=== PATIENT | male | born 1935 | race Caucasian/White ===

== ENCOUNTER 2017-07-18 12:03 | Day surgery (SDC) | payer MEDICARE, BC ==
[2017-07-18 12:28] VITALS: BP 172/81; PULSE 76; RESP 16; TEMP 98.5
== END 2017-07-18 13:12 | disposition home or self-care (01) ==
LOC: CATHCVL 12:03
PROVIDERS: ATTEND Radiology Diagnostic Radiology
DX: M71.169 Other infective bursitis, unspecified knee (principal)
CPT/HCPCS: 00000; C1751; 0

== ENCOUNTER 2018-03-08 11:11 | Emergency (ER) | payer MEDICARE, BC ==
[2018-03-08 13:18] LABS: Basophils % (A) 0 %; Eosinophils # (A) 0.2 k/uL (0-0.7); Eosinophils % (A) 4 %; HCT 45.2 % (39.0-53.0); HGB 14.6 gm/dL (13.0-17.5); Lymphocytes % (A) 16 %; MCH 29.8 pg (25.0-35.0); MCHC 32.2 g/dL (31.0-37.0); MCV 92.5 fL (80.0-100.0); Mean Platelet Volume 7.4; Monocytes # (A) 0.4 k/uL (0-1.0); Monocytes % (A) 7 %; Neutrophils # (A) 4.2 k/uL (1.3-7.7); Neutrophils % (A) 70 %; Platelet Count 199 k/uL (150-450); RBC 4.89 m/uL (4.30-5.90); RDW 15.6 % (11.5-15.5)
[2018-03-08 13:31] LABS: INR 4.7 (<1.2); Partial Thromboplastin Time 49.4 sec (22.0-30.0); Prothrombin Time 42.6 sec (9.0-12.0)
[2018-03-08 13:33] LABS: Albumin 3.8 g/dL (3.5-5.0); Calcium 8.9 mg/dL (8.4-10.2); Phosphorus 3.8 mg/dL (2.5-4.5); Potassium 5.2 mmol/L (3.5-5.1); Total Bilirubin 0.5 mg/dL (0.2-1.3); Total Protein 6.9 g/dL (6.3-8.2)
[2018-03-08 13:35] LABS: D-Dimer 1.39 mg/L FEU (<0.60)
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
--- NOTE | 2018-03-08 13:56 | US ---
EXAMINATION TYPE: US venous doppler duplex LE BI DATE OF EXAM: 03/08/2018 1:21 PM COMPARISON: NONE CLINICAL HISTORY: 83-year-old male Pain. Bilateral leg pain and swelling x couple days, on blood thin ners, exam done portable in ER. SIDE PERFORMED: Bilateral TECHNIQUE: The lower extremity deep venous system is examined utilizing real time linear array sonog uriah with graded compression, doppler sonography and color-flow sonography. FINDINGS: VESSELS IMAGED: External Iliac Vein (EIV) Common Femoral Vein Deep Femoral Vein Greater Saphenous Vein * Femoral Vein Popliteal Vein Small Saphenous Vein * Proximal Calf Veins (* superficial vessels) Handle Bar Assembler notes: Technically difficult study due to leg swelling Right Leg: Appears negative for DVT Left Leg: Appears negative for DVT IMPRESSION: No evidence for DVT within the bilateral lower extremities imaged from the groin to the upper calves. Soft tissue swelling is noted and causes some technical limitations.
[2018-03-08 14:00] LABS: Creatine Kinase 32 U/L (55-170)
--- NOTE | 2018-03-08 14:08 | XR ---
EXAMINATION TYPE: XR chest 2V DATE OF EXAM: 03/08/2018 COMPARISON: 06/04/2013 HISTORY: 83-year-old male with weakness and edema TECHNIQUE: PA and lateral views FINDINGS: Right anterior chest wall pacemaker generator with right knee joint and right ventricular leads. Spin al stimulator ray centered along the mid thoracic spinal canal. Heart is mildly enlarged. Aorta withi n normal limits. Patchy bibasilar opacities, right greater than left. No pleural effusion. Anterior e ndplate spondylosis. IMPRESSION: 1. Similar mild cardiomegaly. 2. Chronic changes and patchy bibasilar areas of atelectasis or infiltrates. The former is favored.
[2018-03-08 14:13] LABS: Creatine Kinase MB 0.8 ng/mL (0.0-2.4); Troponin I <0.012 ng/mL (0.000-0.034)
[2018-03-08 14:57] VITALS: BP 158/72; PULSE 72; RESP 18; TEMP 98.1
== END 2018-03-08 14:40 | disposition home or self-care (01) ==
LOC: EC 11:11
DX: M79.605 Pain in left leg (principal); M79.604 Pain in right leg; R60.0 Localized edema; K21.9 Gastro-esophageal reflux disease without esophagitis; Z79.899 Other long term (current) drug therapy; Z86.73 Personal history of transient ischemic attack (TIA), and cerebral infarction without residual deficits; Z85.46 Personal history of malignant neoplasm of prostate; Z85.038 Personal history of other malignant neoplasm of large intestine; Z95.0 Presence of cardiac pacemaker; Z95.5 Presence of coronary angioplasty implant and graft
CPT/HCPCS: 36415; 71046; 80053; 82550; 82553; 83605; 83735; 83880; 84100; 84484; 85025; 85379; 85610; 85730; 93970; 99284

== ENCOUNTER → 2018-03-30 | Outpatient (CLI) | payer MEDICARE, BC ==
--- NOTE | 2018-04-04 09:45 | P.ARTDOP ---
Arterial Doppler LOWER EXTREMITY ARTERIAL DOPPLER: DATE OF SERVICE: 03/30/2018 Reason for study: Bilateral leg discoloration and left leg cellulitis. Doppler waveforms: Multiphasic bilaterally throughout. Pulse volume recording: Normal configuration. Pressure gradients: None registered. Ankle-brachial indices: Cannot occlude. 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 Flow pattern is otherwise looking normal.
== END | disposition home or self-care (01) ==
LOC: RADUSWWP 14:35
PROVIDERS: ATTEND Internal Medicine Infectious Disease
DX: I77.9 Disorder of arteries and arterioles, unspecified (principal)
CPT/HCPCS: 93923

== ENCOUNTER → 2020-03-05 | Outpatient (CLI) | payer MEDICARE, BC ==
--- NOTE | 2020-03-06 09:18 | CT ---
EXAMINATION TYPE: CT chest w con DATE OF EXAM: 03/05/2020 COMPARISON: Chest x-ray 02/21/2020 HISTORY: Cough and dyspnea x2 months CT DLP: 622 mGycm, Automated exposure control for dose reduction was used. CONTRAST: Performed injected with 80 mL of Isovue 300. TECHNIQUE: Axial images were obtained at 5 mm thick sections. Reconstructed images are reviewed on [employer] computer in the coronal plane. FINDINGS: Thyroid is not identified. Some mild nonspecific peripheral infiltrates or on the right dependent lung bases. Some minimal left dependent lung base infiltrates are present. Small amount of infiltrate is along the lateral left kaleigh g margin. No enlarged mediastinal or hilar adenopathy is evident. Heart size is enlarged. Coronary artery nathan cification is noted. The ascending aorta diameter at the level of the main pulmonary artery is 4.1 cm . The main pulmonary artery diameter at the bifurcation is 3.[address] sections are obtained through the upper abdomen. Abdomen is essentially unremarkable. IMPRESSIONS: 1. Scattered peripheral infiltrates. Correlate for pneumonia. Consider atypical pneumonia. 2. Cardiomegaly
== END | disposition home or self-care (01) ==
LOC: RADCTMAIN 17:31
PROVIDERS: ATTEND Nurse Practitioner Adult Health
DX: R91.8 Other nonspecific abnormal finding of lung field (principal); I51.7 Cardiomegaly; R06.09 Other forms of dyspnea
CPT/HCPCS: 82565; 84520; 71260; 36415; Q9967

== ENCOUNTER → 2021-11-30 | Outpatient (CLI) | payer MEDICARE, BC ==
[2021-11-30 18:31] LABS: Basophils # (A) 0.03 X 10*3/uL (0.00-0.10); Basophils % (A) 0.5 %; Eosinophils # (A) 0.17 X 10*3/uL (0.04-0.35); Eosinophils % (A) 2.9 %; HCT 40.2 % (39.6-50.0); HGB 12.4 g/dL (13.0-17.0); Immature Grans, Automated 0.5 %; Lymphocytes # (A) 1.11 X 10*3/uL (0.90-5.00); Lymphocytes % (A) 18.7 %; MCH 30.5 pg (27.0-32.0); MCHC 30.8 g/dL (32.0-37.0); Mean Platelet Volume 10.5 fL (9.5-12.2); Monocytes % (A) 10.1 %; NRBC Per 100 WBC 0 /100 WBCS (0.0-0.0); Neutrophils % (A) 67.3 %; Platelet Count 162 X 10*3/uL (140-440); RBC 4.06 X 10*6/uL (4.40-5.60); RDW 16.6 % (11.5-14.5); WBC 5.94 X 10*3/uL (4.50-10.00)
[2021-11-30 19:50] LABS: African American GFR (CKD) 74.1 (60.0-200.0); Albumin/Globulin Ratio 1.4 (1.60-3.17); Anion Gap 14.6 mmol/L (10.00-18.00); BUN/Creat Ratio 21.81 Ratio (12.00-20.00); Blood Urea Nitrogen 22.9 mg/dL (9.0-27.0); Calcium 9.1 mg/dL (8.7-10.3); Globulin 2.9 g/dL (1.6-3.3); Potassium 5.1 mmol/L (3.5-5.5); Total Bilirubin 0.4 mg/dL (0.30-1.20); Total Protein 6.9 g/dL (6.2-8.2)
== END | disposition home or self-care (01) ==
LOC: LABWHC1 10:50
PROVIDERS: ATTEND Internal Medicine Interventional Cardiology
DX: I10 Essential (primary) hypertension (principal); I48.91 Unspecified atrial fibrillation; R53.83 Other fatigue
CPT/HCPCS: 36415; 80053; 84439; 84443; 85025

== ENCOUNTER → 2023-02-20 | Day surgery (SDC) | payer MEDICARE, OTHER ==
[~2023-02-20] MED LIST: ACETAMINOPHEN IV (For NPO) 1,000 MG in EMPTY BAG 1 BAG IVPB STA; SODIUM CHLORIDE 0.9% 500 ML 500 ML IV ONE; ceFAZolin 3 GM in SODIUM CHLORIDE 0.9% 100 ML IVPB STA; oxyCODONE-APAP 5-325MG 1 EACH TAB PO STA
[2023-02-20 18:48] VITALS: BP 169/80; PULSE 60; RESP 18; TEMP 98.3
--- NOTE | 2023-02-23 15:07 | P.PCN ---
Preoperative Diagnosis: Mr. Cummings was referred from the clinic for examination of wound/ICD implant site The wound was inspected There was no obvious infection Necrotic skin edges were noted However in the edges of carefully lifted, the base was healthy The circumflex sutures removed The area was cleaned and then dressed with Vaseline gauze Dressing applied IV antibiotics given Discharge home and we will see him again in about a week's time Impression Wound inspection, suture removal and dressing
== END ==
LOC: CATHEP 16:20
PROVIDERS: ATTEND Internal Medicine Clinical Cardiac Electrophysiology
DX: Z53.8 Procedure and treatment not carried out for other reasons (principal); L08.9 Local infection of the skin and subcutaneous tissue, unspecified
CPT/HCPCS: J0690; J0131

== ENCOUNTER 2023-04-02 16:39 | Inpatient (IN) | payer MEDICARE, OTHER ==
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
[2023-04-02 17:16] LABS: Basophils % (A) 0 %; Eosinophils # (A) 0.1 k/uL (0-0.7); Eosinophils % (A) 1 %; HGB 11.7 gm/dL (13.0-17.5); Lymphocytes # (A) 0.6 k/uL (1.0-4.8); Lymphocytes % (A) 7 %; MCH 32.2 pg (25.0-35.0); MCHC 32.6 g/dL (31.0-37.0); MCV 98.7 fL (80.0-100.0); Mean Platelet Volume 8.8; Monocytes # (A) 0.3 k/uL (0-1.0); Monocytes % (A) 4 %; Neutrophils # (A) 7.4 k/uL (1.3-7.7); Neutrophils % (A) 87 %; Platelet Count 160 k/uL (150-450); RBC 3.65 m/uL (4.30-5.90); WBC 8.5 k/uL (3.8-10.6)
[2023-04-02 17:56] LABS: African American GFR (CKD) 42 (>60 ml/min/1.73 sqM); Anion Gap 12 mmol/L; Blood Urea Nitrogen 62 mg/dL (9-20); Calcium 8.4 mg/dL (8.4-10.2); Carbon Dioxide 24 mmol/L (22-30); Chloride 102 mmol/L (98-107); Glucose 214 mg/dL (74-99); Magnesium 2.7 mg/dL (1.6-2.3); Non-African American GFR(CKD) 37 (>60 ml/min/1.73 sqM); Potassium 5.6 mmol/L (3.5-5.1); Sodium 138 mmol/L (137-145)
[2023-04-02] MEDS ORDERED: SODIUM ZIRCONIUM CYCLOSILICATE 10 GM PACKET PO ONE (17:57)
[2023-04-02] MEDS ORDERED: SODIUM CHLORIDE 0.9% 1,000 ML IV STA (17:58)
[2023-04-02] MEDS ORDERED: NALOXONE 0.4 MG/ML 1 ML VIAL IV PRN (18:26)
[2023-04-02] MEDS: SODIUM CHLORIDE 0.9% 1,000 ML IV SCH (18:33)
[2023-04-03 00:17] LABS: Appearance,Urine Cloudy (Clear); Bacteria,Urine Occasional /hpf; Bilirubin,Urine Negative (Negative); Blood,Urine Small (Negative); Color,Urine Yellow; Glucose,Urine (UA) Negative (Negative); Hyaline Casts,Urine 3 /lpf (0-2); Ketones,Urine Negative (Negative); Leukocyte Esterase,Urine Large (Negative); Mucus,Urine Rare /hpf; Nitrite,Urine Negative (Negative); PH, Urine 5.5 (5.0-8.0); Protein,Urine Trace (Negative); RBC,Urine 4 /hpf (0-5); Specific Gravity,Urine 1.017 (1.001-1.035); Squamous Epithelial Cell,Urine <1 /hpf (0-4); Urobilinogen,Urine <2.0 mg/dL (<2.0); WBC,Urine >182 /hpf (0-5)
[2023-04-03] MEDS: SODIUM CHLORIDE 0.9% 1,000 ML IV SCH ×3 (09:59→20:02)
[2023-04-03] MEDS: LEVOTHYROXINE 75 MCG TAB PO SCH (09:59)
[2023-04-03] MEDS: atenoloL 50 MG TAB PO SCH (10:00)
[2023-04-03] MEDS: APIXABAN 2.5 MG TABLET PO SCH ×2 (10:00→20:43)
[2023-04-03] MEDS ORDERED: IPRATROPIUM-ALBUTEROL 3 ML NEB INHALATION PRN (10:33)
[2023-04-03] MEDS ORDERED: bisacodyL 10 MG SUPP RECTAL PRN (10:33)
[2023-04-03] MEDS ORDERED: ACETAMINOPHEN TAB 325 MG TAB PO PRN (10:33)
[2023-04-03] MEDS ORDERED: MELATONIN 5 MG TABLET PO PRN (10:33)
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
--- NOTE | 2023-04-03 10:52 | CONS ---
CONSULTATION REQUEST FOR CONSULT: Regarding Lasix management. HISTORY OF PRESENT ILLNESS: Mr. Cummings is an 88-year-old gentleman with a chronic atrial fibrillation, sick sinus syndrome with underlying pacemaker. 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 He has underlying hypertension, hypothyroidism and hyperlipidemia. He takes Eliquis 5 mg b.i.d. In late January, he had a pulse generator change on the right side. There was a question of infection, but there is good healing. A small scab is noted. He apparently was sent here from [facility] through the emergency room. The diagnosis was that of hyperkalemia, UTI and dysrhythmia. The patient's potassium level was about 5.5. He was given Lokelma. His lactic acidosis was also high. The patient appears to be clinically dehydrated and he is resting comfortably at the time of my evaluation. He does not appear to be confused. PAST MEDICAL HISTORY: 1. Chronic atrial fib. 2. Diastolic heart failure. 3. History of left upper extremity amputation by accident. 4. Dual-chamber pacemaker with recent generator change in late January. 5. Chronic diastolic heart failure. 6. Type 2 diabetes mellitus. 7. Hypothyroidism, on replacement therapy. PHYSICAL EXAMINATION: VITAL SIGNS: Blood pressure is 118/70, pulse rate is 60 per minute. Appears to be a paced rhythm. HEENT: Unremarkable. Fundus was not examined. NECK: Supple. There is no JVD. I do not hear a carotid bruit. HEART: Reveals S1, S2 heard normally. Short systolic murmur. LUNGS: Bilateral decent air entry. ABDOMEN: Soft. EXTREMITIES: Lower extremities reveal diminished pulses. CENTRAL NERVOUS SYSTEM: Normal. DIAGNOSTIC DATA: EKG revealed a ventricular paced rhythm with underlying atrial fibrillation. Rate is about 60 beats per minute. LABORATORY DATA: Reveals a potassium yesterday was about 5.6. Lactate was 2.2 after it was much higher in [place], now down to 1.8. His creatinine is 1.65. IMPRESSION: 1. Probable urinary tract infection. Cultures pending. Leukocyte esterase is large. 2. Dehydration with some low intravascular volume supplemented. 3. Chronic atrial fibrillation. 4. Sick sinus syndrome with a permanent pacemaker. 5. Type 2 diabetes. RECOMMENDATIONS: I am recommending hydration antibiotics. Resume home medications but hold Lasix and losartan at this time. Based on clinical course, we will make further recommendations. Hopefully, the patient can be discharged soon. Await the results of urine culture. The patient also has history of infrarenal abdominal aortic aneurysm status post endovascular stenting done several years ago. I will also reduce the dose of Eliquis 2.5 mg b.i.d. since creatinine is up to 1.65. Continue other medications and continue cautious hydration along with antibiotics. Prognosis remains guarded. MMODL / IJN: [id number] /
[2023-04-03 12:59] LABS: T4, Free (Free Thyroxine) 0.95 ng/dL (0.78-2.19)
[2023-04-03] MEDS: TAMSULOSIN 0.4 MG CAP.ER.24H PO SCH (13:14)
[2023-04-03] MEDS: SYMBICORT 160-4.5 MCG INHALER INHALATION SCH (20:45)
[2023-04-04] MEDS: LEVOTHYROXINE 75 MCG TAB PO SCH (06:10)
--- NOTE | 2023-04-04 07:04 | CA ---
Transthoracic Echo Report Name: Matthieu Cummings Age: 88 Gender: M : 1935 Exam Date: 04/03/2023 13:35 Exam Location: [place] [facility] Ht (in): 72 Wt (lb): 265 Ordering Physician: Elver Ramirez MD ([id number]) Attending/Referring Phys: Home Appliance Installer Lorna Mann [facility] Procedure CPT: Indications: Afib, HTN-Eval LV Fx Cardiac Hx: Technical Quality: Fair Contrast 1: Total Dose (mL): Contrast 2: Total Dose (mL): MEASUREMENTS (Male / Female) Normal Values 2D ECHO LV Diastolic Diameter PLAX 5.8 cm 4.2 - 5.9 / 3.9 - 5.3 cm LV Systolic Diameter PLAX 3.5 cm IVS Diastolic Thickness 1.0 cm 0.6 - 1.0 / 0.6 - 0.9 cm LVPW Diastolic Thickness 1.0 cm 0.6 - 1.0 / 0.6 - 0.9 cm LV Relative Wall Thickness 0.4 LVOT Diameter 2.0 cm LV Diastolic Volume MOD BP 98.4 cm??? 67 - 155 / 56 - 104 cm??? LV Systolic Volume MOD BP 34.6 cm??? 22 - 58 / 19 - 49 cm??? LV Ejection Fraction MOD BP 64.9 % >= 55 % LV Cardiac Index MOD BP 1320.8 cm???/min???m??? LV Diastolic Volume MOD 4C 93.6 cm??? LV Systolic Volume MOD 4C 32.4 cm??? LV Ejection Fraction MOD 4C 65.4 % LV Cardiac Index MOD 4C 1266.3 cm???/min???m??? LV Diastolic Length 4C 7.9 cm LV Systolic Length 4C 7.0 cm LV Diastolic Volume MOD 2C 103.4 cm??? LV Systolic Volume MOD 2C 35.9 cm??? LV Ejection Fraction MOD 2C 65.3 % LV Cardiac Index MOD 2C 1397.1 cm???/min???m??? LV Diastolic Length 2C 8.0 cm LV Systolic Length 2C 7.2 cm M-MODE Aortic Root Diameter MM 2.7 cm LA Systolic Diameter MM 6.0 cm LA Ao Ratio MM 2.2 AV Cusp Separation MM 2.3 cm DOPPLER AV Peak Velocity 123.2 cm/s AV Peak Gradient 6.1 mmHg AV Mean Velocity 96.3 cm/s AV Mean Gradient 3.9 mmHg AV Velocity Time Integral 26.7 cm LVOT Peak Velocity 95.8 cm/s LVOT Peak Gradient 3.7 mmHg LVOT Velocity Time Integral 23.0 cm LVOT Stroke Volume 74.6 cm??? LVOT Stroke Volume Index 31.1 ml/m??? LVOT Cardiac Index 1542.8 cm???/min???m??? AV Area Cont Eq vti 2.8 cm??? AV Area Cont Eq pk 2.5 cm??? Mitral E Point Velocity 109.9 cm/s MV Deceleration Time 221.8 ms LV E' Lateral Velocity 9.8 cm/s Mitral E to LV E' Lateral Ratio 11.2 LV E' Septal Velocity 8.9 cm/s Mitral E to LV E' Septal Ratio 12.3 TR Peak Velocity 313.6 cm/s TR Peak Gradient 39.3 mmHg Right Atrial Pressure 15.0 mmHg Pulmonary Artery Systolic Pressu 54.3 mmHg Right Ventricular Systolic Press 54.3 mmHg FINDINGS Left Ventricle Left ventricular wall thickness at upper limits of normal. Left ventricular cavity size at the upper limits of normal. Normal left ventricular systolic function with no obvious regional wall motion abnormalities. Left ventricular ejection fraction is estimated at 55%. Right Ventricle Severe right ventricular dilatation. Catheter/pacemaker wire in the right ventricular cavity. Moderate pulmonary hypertension. Mildly reduced right ventricular global systolic function. Right Atrium Severe right atrial dilatation. Left Atrium Severe left atrial dilatation. Mitral Valve Mitral valve thickened. Mild mitral annular calcification. Mild mitral regurgitation. Aortic Valve Trileaflet aortic valve. Aortic valve sclerosis. No aortic regurgitation. Tricuspid Valve Structurally normal tricuspid valve. Moderate tricuspid regurgitation. Pulmonic Valve Pulmonic valve not well visualized. Pericardium No pericardial effusion. Aorta Normal size aortic root. CONCLUSIONS Normal LV size and systolic function with concentric LVH right ventricle is significantly enlarged. Moderate pulmonary hypertension reduced right ventricular function. Enlarged atria mild mitral and tricuspid regurgitation no pericardial effusion Previewed by: Dr. Elver Ramirez MD (Electronically Signed) Final Date: 04 April 2023 07:03
[2023-04-04] MEDS: SYMBICORT 160-4.5 MCG INHALER INHALATION SCH ×2 (07:27→19:37)
[2023-04-04 07:46] LABS: Basophils % (A) 0 %; Eosinophils # (A) 0.2 k/uL (0-0.7); Eosinophils % (A) 4 %; HCT 33.3 % (39.0-53.0); HGB 10.8 gm/dL (13.0-17.5); Lymphocytes # (A) 0.6 k/uL (1.0-4.8); Lymphocytes % (A) 10 %; MCH 31.9 pg (25.0-35.0); MCHC 32.4 g/dL (31.0-37.0); MCV 98.6 fL (80.0-100.0); Mean Platelet Volume 8.8; Monocytes # (A) 0.4 k/uL (0-1.0); Monocytes % (A) 6 %; Neutrophils # (A) 4.5 k/uL (1.3-7.7); Neutrophils % (A) 77 %; Platelet Count 155 k/uL (150-450); RBC 3.38 m/uL (4.30-5.90); RDW 14.2 % (11.5-15.5); WBC 5.9 k/uL (3.8-10.6)
[2023-04-04 08:02] LABS: African American GFR (CKD) 83 (>60 ml/min/1.73 sqM); Anion Gap 6 mmol/L; Blood Urea Nitrogen 32 mg/dL (9-20); Calcium 8.1 mg/dL (8.4-10.2); Carbon Dioxide 25 mmol/L (22-30); Chloride 105 mmol/L (98-107); Glucose 136 mg/dL (74-99); Non-African American GFR(CKD) 72 (>60 ml/min/1.73 sqM); Potassium 4.4 mmol/L (3.5-5.1); Sodium 136 mmol/L (137-145)
[2023-04-04] MEDS: SODIUM CHLORIDE 0.9% 1,000 ML IV SCH ×2 (08:51→17:49)
[2023-04-04] MEDS ORDERED: TAMSULOSIN 0.4 MG CAP.ER.24H PO SCH (09:00)
[2023-04-04] MEDS: atenoloL 50 MG TAB PO SCH (10:02)
[2023-04-04] MEDS: APIXABAN 2.5 MG TABLET PO SCH ×2 (10:02→20:56)
[2023-04-04] MEDS: TAMSULOSIN 0.4 MG CAP.ER.24H PO SCH (10:04)
[2023-04-04] MEDS: allopurinoL 100 MG TAB PO SCH (10:16)
--- NOTE | 2023-04-04 10:49 | PN ---
PROGRESS NOTE HISTORY: Mr. Cummings came in with a UTI and dehydration. This morning, he is doing much better. He has no chest pain or shortness of breath. He is still on antibiotics. Echo revealed good systolic function, enlarged right-sided chambers. We will decrease his IV fluids to KVO. Increase oral fluids. Continue all his current medications. Blood pressure control is good. He already has an appointment to see me later on this month. Advised to keep the appointment. He has underlying atrial fibrillation with a ventricular paced rhythm. PHYSICAL EXAMINATION: VITAL SIGNS: Blood pressure is 130/70, pulse rate is 60 per minute. NECK: No JVD. HEART: S1, S2 with a short systolic murmur audible. LUNGS: Revealed decent air entry. ABDOMEN: Soft. LOWER EXTREMITIES: Reveal diminished pulses. CENTRAL NERVOUS SYSTEM: Grossly within normal limits. The patient can be discharged on antibiotics whenever okay with the admitting doctor. I will see him as needed, and I advised to follow up in the office. MMODL / IJN: [id number] /
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
[2023-04-04] MEDS: metFORMIN 500 MG TAB PO SCH (17:50)
[2023-04-04] MEDS: SODIUM CHLORIDE 0.9% 500 ML 500 ML IV SCH (17:52)
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
[2023-04-05] MEDS: LEVOTHYROXINE 75 MCG TAB PO SCH (06:36)
[2023-04-05] MEDS: SYMBICORT 160-4.5 MCG INHALER INHALATION SCH ×2 (07:38→19:16)
[2023-04-05] MEDS: TAMSULOSIN 0.4 MG CAP.ER.24H PO SCH (09:26)
[2023-04-05] MEDS: metFORMIN 500 MG TAB PO SCH ×2 (09:26→17:55)
[2023-04-05] MEDS: APIXABAN 2.5 MG TABLET PO SCH ×2 (09:26→22:27)
[2023-04-05] MEDS: atenoloL 50 MG TAB PO SCH (09:26)
[2023-04-05] MEDS: allopurinoL 100 MG TAB PO SCH (09:26)
[2023-04-05] MEDS: SODIUM CHLORIDE 0.9% 500 ML 500 ML IV SCH (09:27)
--- NOTE | 2023-04-05 11:43 | XR ---
EXAMINATION TYPE: XR chest 2V DATE OF EXAM: 04/05/2023 COMPARISON: 03/08/2013 INDICATION: Pneumonia TECHNIQUE: Frontal and lateral views of the chest are obtained. FINDINGS: The heart size is enlarged. The pulmonary vasculature is somewhat prominent. Right lower lobe infiltrate is present. Correlate for atelectasis and pneumonia. Some mild subsegment al atelectasis may be at the left base partially silhouetting left diaphragm. Minimal pleural effusio ns are not excluded. IMPRESSION: 1. Bibasilar infiltrates better appreciated on the lateral projection. Correlate for atelectasis and pneumonia. Minimal effusions are not excluded. Follow-up examinations are recommended. 2. Cardiomegaly
--- NOTE | 2023-04-05 12:08 | P.PN ---
Subjective Progress Note Date: 04/05/23 Principal diagnosis: Reason for follow-up is UTI and question of pneumonia Patient is a 88-year-old male with a past medical history significant for CVA TIA reflux osteoarthritis, patient also have History of colon and prostate cancer and also have history of cardiac arrhythmia with a pacemaker to the right chest wall, patient has been transferred to this facility from [facility] facility for evaluation of weakness lethargic he did have elevated potassium positive UA concerning for UTI On today's evaluation that is04/05/2023, the patient continues to be afebrile , the patient is breathing comfortably on 3 L nasal cannula supplemental oxygen, the patient denies chest pain shortness of breath or cough , patient denies nausea/vomiting, no abdominal pain and no diarrhea has been reported by the nursing staff. Patient did have white count of 5.9, creatinine 0.95, pro calcitonin of 1.92 as of yesterday Objective - Vital Signs Vital signs: Vital Signs Temp 97.6 F 04/05/23 07:08 Pulse 63 04/05/23 07:08 Resp 18 04/05/23 07:08 BP 147/76 04/05/23 07:08 Pulse Ox 94 L 04/05/23 07:08 FiO2 Intake & Output 04/04/23 04/05/23 04/05/23 18:59 06:59 18:59 Output Total 1040 625 Balance -1040 -625 Output: Urine 1040 625 Other: Voiding Method Indwelling Catheter Indwelling Catheter # Voids 1 - Exam GENERAL DESCRIPTION: An elderly male lying in bed in no distress RESPIRATORY SYSTEM: Unlabored breathing , decreased breath sounds at the base HEART: S1 S2 regular rate and rhythm , ABDOMEN: Soft , no tenderness EXTREMITIES: No edema feet - Labs CBC & Chem 7: 04/04/23 06:53 04/04/23 06:53 Labs: Abnormal Lab Results - Last 24 Hours (Table) 04/04/23 Range/Units 06:53 Hemoglobin A1c 7.8 H (<=6.0) % Microbiology - Last 24 Hours (Table) 04/02/23 22:30 Urine Culture - Final Urine,Voided Assessment and Plan (1) UTI (urinary tract infection) Current Visit: Yes Status: Acute Code(s): N39.0 - URINARY TRACT INFECTION, SITE NOT SPECIFIED SNOMED Code(s): 83023333 (2) Elevated procalcitonin Current Visit: Yes Status: Acute Code(s): R79.89 - OTHER SPECIFIED ABNORMAL FINDINGS OF BLOOD CHEMISTRY SNOMED Code(s): 284740437 Plan: 1patient presented hospital for evaluation of weakness and lethargy in this patient who did have a little retention requiring Sampson catheter placement did have a positive UA likely source of this infection culture has been negative however the patient has been on antibiotics by the time these cultures were obtained and in view of clinical response to the Rocephin will likely Rocephin sensitive pathogen 2-patient to give a history of pacemaker site infection after change of his generator battery however he is not very clear about any further information about it and the pacemaker site incision is currently scabbed over and no drainage 3-blood culture has been drainage and currently pending, patient did have a chest x-ray with bibasilar infiltrated question of atelectasis pneumonia not excluded 4-patient to continue with Rocephin and hopefully transition to oral Ceftin on discharge Dictation was produced using [employer] dictation software. please excuse any grammatical, word or spelling errors. Time with Patient: Less than 30
[2023-04-05] MEDS: SODIUM CHLORIDE 0.9% 1,000 ML IV SCH (19:11)
[2023-04-06] MEDS: LEVOTHYROXINE 75 MCG TAB PO SCH (06:06)
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
[2023-04-06] MEDS: SYMBICORT 160-4.5 MCG INHALER INHALATION SCH ×2 (08:35→18:32)
[2023-04-06] MEDS: metFORMIN 500 MG TAB PO SCH ×2 (09:22→17:49)
[2023-04-06] MEDS: atenoloL 50 MG TAB PO SCH (09:22)
[2023-04-06] MEDS: TAMSULOSIN 0.4 MG CAP.ER.24H PO SCH (09:22)
[2023-04-06] MEDS: APIXABAN 2.5 MG TABLET PO SCH (09:22)
[2023-04-06] MEDS: allopurinoL 100 MG TAB PO SCH (09:22)
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
[2023-04-06] MEDS: SODIUM CHLORIDE 0.9% 500 ML 500 ML IV SCH (10:00)
--- NOTE | 2023-04-06 13:10 | P.PN ---
Subjective Progress Note Date: 04/06/23 Principal diagnosis: Reason for follow-up is UTI and question of pneumonia Patient is a 88-year-old male with a past medical history significant for CVA TIA reflux osteoarthritis, patient also have History of colon and prostate cancer and also have history of cardiac arrhythmia with a pacemaker to the right chest wall, patient has been transferred to this facility from [facility] facility for evaluation of weakness lethargic he did have elevated potassium positive UA concerning for UTI On today's evaluation that is 04/06/2023, the patient remains to be afebrile , the patient is breathing comfortably on room air , the patient denies any shortness of breath, the patient denies chest pain , did have occasional dry cough , patient denies abdominal pain, no nausea/vomiting and no diarrhea has been reported Patient did have white count of 5.9, creatinine 0.95, pro calcitonin of 1.92 as of 04/04/2023, blood culture has been negative Objective - Vital Signs Vital signs: Vital Signs Temp 98 F 04/06/23 07:02 Pulse 57 L 04/06/23 07:02 Resp 16 04/06/23 07:02 BP 145/71 04/06/23 07:02 Pulse Ox 92 L 04/06/23 07:02 FiO2 Intake & Output 04/05/23 04/06/23 04/06/23 18:59 06:59 18:59 Intake Total 240 Output Total 1300 500 Balance -1060 -500 Intake: Oral 240 Output: Urine 1300 500 Uretheral (Sampson) 650 Other: Voiding Method Indwelling Catheter Indwelling Catheter # Voids 2 # Bowel Movements 1 - Exam GENERAL DESCRIPTION: An elderly male lying in bed in no distress RESPIRATORY SYSTEM: Unlabored breathing , decreased breath sounds at the base HEART: S1 S2 regular rate and rhythm , ABDOMEN: Soft , no tenderness EXTREMITIES: No edema feet - Labs CBC & Chem 7: 04/04/23 06:53 04/04/23 06:53 Labs: Microbiology - Last 24 Hours (Table) 04/04/23 13:04 Blood Culture - Preliminary Blood Assessment and Plan (1) UTI (urinary tract infection) Current Visit: Yes Status: Acute Code(s): N39.0 - URINARY TRACT INFECTION, SITE NOT SPECIFIED SNOMED Code(s): 29406129 (2) Elevated procalcitonin Current Visit: Yes Status: Acute Code(s): R79.89 - OTHER SPECIFIED ABNORMAL FINDINGS OF BLOOD CHEMISTRY SNOMED Code(s): 698142311 Plan: 1patient presented hospital for evaluation of weakness and lethargy in this patient who did have a little retention requiring Sampson catheter placement did have a positive UA likely source of this infection culture has been negative however the patient has been on antibiotics by the time these cultures were obtained and in view of clinical response to the Rocephin will likely Rocephin sensitive pathogen 2-patient to give a history of pacemaker site infection after change of his generator battery however he is not very clear about any further information about it and the pacemaker site incision is currently scabbed over and no drainage 3-blood culture has been negative, patient did have a chest x-ray with bibasilar infiltrated question of atelectasis pneumonia not excluded 4-patient seemed to have her clinical improvement with Rocephin and plan to finish therapy with oral Ceftin , discussed with the admitting team Dictation was produced using [employer] dictation software. please excuse any grammatical, word or spelling errors. Time with Patient: Less than 30
[2023-04-06 14:36] VITALS: BP 142/74; PULSE 96; RESP 18; TEMP 97.7
[2023-04-06] MEDS: SODIUM CHLORIDE 0.9% 1,000 ML IV SCH (17:47)
== END 2023-04-06 19:54 | DRG 682 ==
LOC: EC 16:39 → 5NMEDONC 18:26
PROVIDERS: ADMIT Internal Medicine; ATTEND Internal Medicine
DX: N17.9 Acute kidney failure, unspecified (principal); J18.9 Pneumonia, unspecified organism; E87.20 Acidosis, unspecified; I48.20 Chronic atrial fibrillation, unspecified; I50.32 Chronic diastolic (congestive) heart failure; N39.0 Urinary tract infection, site not specified; I49.5 Sick sinus syndrome; I11.0 Hypertensive heart disease with heart failure; I71.40 Abdominal aortic aneurysm, without rupture, unspecified; E66.9 Obesity, unspecified; E03.9 Hypothyroidism, unspecified; E87.5 Hyperkalemia; E86.0 Dehydration; K21.9 Gastro-esophageal reflux disease without esophagitis; M19.90 Unspecified osteoarthritis, unspecified site; R33.9 Retention of urine, unspecified; E78.5 Hyperlipidemia, unspecified; K59.00 Constipation, unspecified; R40.4 Transient alteration of awareness; Z96.652 Presence of left artificial knee joint; Z79.51 Long term (current) use of inhaled steroids; Z79.899 Other long term (current) drug therapy; Z79.890 Hormone replacement therapy; Z85.038 Personal history of other malignant neoplasm of large intestine; Z85.46 Personal history of malignant neoplasm of prostate; Z86.73 Personal history of transient ischemic attack (TIA), and cerebral infarction without residual deficits; Z95.0 Presence of cardiac pacemaker; Z89.202 Acquired absence of left upper limb, unspecified level; Z79.84 Long term (current) use of oral hypoglycemic drugs; Z79.01 Long term (current) use of anticoagulants; Z90.79 Acquired absence of other genital organ(s); Z68.35 Body mass index [BMI] 35.0-35.9, adult
CPT/HCPCS: 36415; 71046; 80048; 81001; 83036; 83605; 83735; 84145; 84439; 84443; 85025; 87040; 87086; 93005; 93306; 94640; 99285